=== PATIENT | male | born 1980 | race Caucasian/White ===

== ENCOUNTER 2016-07-01 08:22 | Emergency (ER) | payer MEDICAID ==
[~2016-07-01] VITALS: Ht 175.3 cm; Wt 81.6 kg
[2016-07-01 08:26] VITALS: BP 133/82; PULSE 90; RESP 18; TEMP 98.7; O2SAT 97
--- NOTE | 2016-07-01 08:26 | NUR ---
Patient brought in self with complaint of cough since last night. Patient presents as awake,alert, oriented x 4, verbalizes complaint of cough.Patient breath sounds even and unlabored, clear lung sounds heard.No other complaints/injury per patient, none noted.
--- NOTE | 2016-07-01 08:26 | NUR ---
Pt placed to ER bed 08. Pt here for c/o headache with cough, cold, head congestion x 1 day. Respirations even and non-labored, BBS clear. Pt homeless.
--- NOTE | 2016-07-01 08:27 | NUR ---
DR BENJAMIN AT BEDSIDE FOR EVALUATION
[2016-07-01] MEDS ORDERED: IBUPROFEN 800 MG TABLET PO ONE (08:45)
[2016-07-01 09:50] VITALS: BP 122/88; PULSE 99; RESP 18; TEMP 98.7; O2SAT 100
--- NOTE | 2016-07-01 09:50 | NUR ---
Patient given written and verbal discharge instructions and verbalizes understanding. ER MD discussed with patient the results and treatment provided. Patient in stable condition. ID arm band removed. Rx of Mucinex and Iburofen given. Patient educated on pain management and to follow up with PMD. Pain Scale 0/10. Opportunity for questions provided and answered.
== END 2016-07-01 09:50 | disposition home or self-care (01) ==
LOC: SED 08:22
DX: J06.9 Acute upper respiratory infection, unspecified (principal); J02.9 Acute pharyngitis, unspecified; F17.200 Nicotine dependence, unspecified, uncomplicated
CPT/HCPCS: 36415; 86403; 87081; 99284

== ENCOUNTER 2019-04-14 07:26 | Emergency (ER) | payer MEDICAID ==
[~2019-04-14] VITALS: Ht 172.7 cm; Wt 81.6 kg
[2019-04-14 07:26] VITALS: BP_SYST 125
--- NOTE | 2019-04-14 07:26 | NUR ---
BROUGHT IN BY [employer] [employer], PLACED IN BED #8 AND TRIAGED. REPORT GIVEN TO TAE
--- NOTE | 2019-04-14 07:28 | NUR ---
Pt brought by police officers in custody, pt c/o anxiety, states he was using meth few days ago , skin pink and warm, cap refill <3, respirations even and unlabored, follows commands.
--- NOTE | 2019-04-14 07:41 | NUR ---
Dr Miramontes at bedside examining patient
[2019-04-14] MEDS ORDERED: LORazepam 1 MG TABLET PO ONE (07:45)
[2019-04-14 08:05] LABS: BASOPHILS # (AUTO) 0.1 K/uL (0.0-0.2); EOSINOPHILS # (AUTO) 0.3 K/uL (0.0-0.4); HEMATOCRIT 45.4 % (36-54); HEMOGLOBIN 15.1 g/dL (14.0-18.0); LYMPHOCYTES # (AUTO) 1.5 K/uL (1.0-5.5); LYMPHOCYTES % (AUTO) 27.2 % (20.5-51.5); MEAN CORPUSCULAR HEMOGLOBIN 30 pg (27-31); MEAN CORPUSCULAR HGB CONC 33 % (32-36); MEAN CORPUSCULAR VOLUME 91 fL (79.0-98.0); MONOCYTES # (AUTO) 0.4 K/uL (0.0-1.0); MONOCYTES % (AUTO) 7.1 % (1.7-9.3); NEUTROPHILS # (AUTO) 3.1 K/uL (1.8-7.7); NEUTROPHILS % (AUTO) 58.7 % (40.0-70.0); PLATELET COUNT (AUTO) 245 K/uL (130-430); RED BLOOD CELL COUNT(AUTO) 4.96 MIL/uL (4.2-6.2); RED CELL DISTRIBUTION WIDTH 13.4 % (9.0-15.0); WHITE BLOOD COUNT (AUTO) 5.3 K/uL (4.8-10.8)
[2019-04-14 08:16] LABS: ANION GAP 9 (5-15); CALCIUM 9.2 mg/dL (8.4-11.0); CHLORIDE 103 mmol/L (98-107); CREATININE 0.94 mg/dL (0.55-1.30); GLUCOSE 89 mg/dL (70-99); SODIUM SERUM 138 mmol/L (136-145); UREA NITROGEN, BLOOD 15 mg/dL (8-21)
[2019-04-14 08:20] LABS: GFR AFRICAN AMERICAN 117 mL/min (>90)
[2019-04-14 08:21] LABS: INR 1.1 (0.80-1.20); PROTHROMBIN TIME 10.8 SECS (9.5-12.5)
[2019-04-14 08:22] LABS: ALANINE AMINOTRANSFERASE 29 U/L (12-78); ALBUMIN 3.5 g/dL (3.4-4.8); AMYLASE 55 U/L (0-100); ASPARTATE AMINOTRANSFERASE 23 U/L (10-37); LIPASE 159 U/L (73-393); TOTAL BILIRUBIN 0.5 mg/dL (0.0-1.0)
[2019-04-14 08:26] LABS: ALCOHOL, BLOOD < 3 mg/dL (<10)
--- NOTE | 2019-04-14 08:27 | NUR ---
Pt resting at this time, police aide at bedside.
[2019-04-14 08:53] LABS: ACETONE, SERUM NEGATIVE (NEGATIVE)
[2019-04-14 09:16] VITALS: BP_SYST 124
--- NOTE | 2019-04-14 09:20 | NUR ---
Patient given written and verbal discharge instructions and verbalizes understanding. ER MD discussed with patient the results and treatment provided. Patient in stable condition. ID arm band removed. Rx of Lorazepam given. Patient educated on pain management and to follow up with PMD. Pain Scale 0/10. Opportunity for questions provided and answered. Medication side effect fact sheet provided.
== END 2019-04-14 09:20 ==
LOC: SED 07:26
DX: F41.9 Anxiety disorder, unspecified (principal); R07.89 Other chest pain
CPT/HCPCS: 36415; 80053; 82009; 82150; 83605; 83690; 84484; 85025; 85610; 85730; 93005; 99284; G0482

== ENCOUNTER 2020-09-25 18:43 | Emergency (ER) | payer MEDICAID ==
[~2020-09-25] VITALS: Ht 172.7 cm; Wt 81.6 kg
--- NOTE | 2020-09-25 18:45 | NUR ---
Patient to ER bed H1 to gown for evaluation. Side rails up.
--- NOTE | 2020-09-25 18:50 | NUR ---
Pt brought by police officers , A&Ox4,pt presents to ER with dogbite on L ring finger, afebrile, VSS, will cont to monitor.
[2020-09-25 18:51] VITALS: BP_SYST 136
[2020-09-25] MEDS ORDERED: AMOX-426 PO (18:52)
--- NOTE | 2020-09-25 19:00 | NUR ---
Dr Hampton evaluating patient at bedside
[2020-09-25 19:04] VITALS: BP_SYST 136
--- NOTE | 2020-09-25 19:09 | NUR ---
Patient and PD given written and verbal discharge instructions and verbalizes understanding. ER MD discussed with patient the results and treatment provided. Patient in stable condition. ID arm band removed. Rx of Amoxicillin given. Patient educated on pain management and to follow up with PMD. Pain Scale 2/10 tolerable for patient . Opportunity for questions provided and answered. Medication side effect fact sheet provided.
== END 2020-09-25 19:04 ==
LOC: SED 18:43
DX: S61.233A Puncture wound without foreign body of left middle finger without damage to nail, initial encounter (principal); W54.0XXA Bitten by dog, initial encounter; Y93.89 Activity, other specified; Y92.89 Other specified places as the place of occurrence of the external cause; Y99.8 Other external cause status
CPT/HCPCS: 99283

== ENCOUNTER 2020-11-14 19:10 | Emergency (ER) | payer MEDICAID ==
[~2020-11-14] VITALS: Ht 172.7 cm; Wt 81.6 kg
[2020-11-14 19:10] VITALS: BP_SYST 144
[~2020-11-14 19:10] MED LIST: AMOX-426 PO
--- NOTE | 2020-11-14 19:10 | NUR ---
Patient to ER bed 06 to gown for evaluation. Side rails up. Report given to LORENA BELL
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
--- NOTE | 2020-11-14 19:22 | NUR ---
ER at bedside examining patient.
--- NOTE | 2020-11-14 19:30 | NUR ---
Patient transported to radiology via ambulatory, accompanied by tech.
--- NOTE | 2020-11-14 19:54 | NUR ---
Pt back from CT.
[2020-11-14] MEDS ORDERED: NAPR-690 PO (20:28)
[2020-11-14 20:35] VITALS: BP_SYST 144
--- NOTE | 2020-11-14 20:35 | NUR ---
Patient given written and verbal discharge instructions and verbalizes understanding. ER MD discussed with patient the results and treatment provided. Patient in stable condition. ID arm band removed. Rx of naproxen given. Patient educated on pain management and to follow up with PMD. Pain Scale 0/10. Opportunity for questions provided and answered. Medication side effect fact sheet provided.
== END 2020-11-14 20:35 | disposition home or self-care (01) ==
LOC: SED 19:10
DX: S02.609A Fracture of mandible, unspecified, initial encounter for closed fracture (principal); Z79.899 Other long term (current) drug therapy; Y04.0XXA Assault by unarmed brawl or fight, initial encounter; Y93.89 Activity, other specified; Y92.89 Other specified places as the place of occurrence of the external cause; Y99.8 Other external cause status
CPT/HCPCS: 70486-TC; 76376; 99284

== ENCOUNTER 2021-01-26 21:54 | Emergency (ER) | payer MEDICAID ==
[~2021-01-26] VITALS: Ht 175.3 cm; Wt 81.6 kg
[~2021-01-26 21:54] MED LIST changes: +NAPR-690 PO
[2021-01-26 22:09] VITALS: BP_SYST 131
--- NOTE | 2021-01-26 22:09 | NUR ---
Patient triaged and placed in ER AMB [address]. VSS and patient appears in no acute distress at this time. Accompanied by EMT, awaiting available bed, and MD notified of need for MSE.
[2021-01-27 00:05] LABS: BASOPHILS # (AUTO) 0.1 K/uL (0.0-0.2); BASOPHILS % (AUTO) 0.5 % (0.0-2.0); EOSINOPHILS # (AUTO) 0.1 K/uL (0.0-0.4); EOSINOPHILS % (AUTO) 0.5 % (0.0-4.0); HEMATOCRIT 43.1 % (36-54); HEMOGLOBIN 14.3 g/dL (14.0-18.0); LYMPHOCYTES # (AUTO) 1.5 K/uL (1.0-5.5); LYMPHOCYTES % (AUTO) 11.7 % (20.5-51.5); MEAN CORPUSCULAR HEMOGLOBIN 30 pg (27-31); MEAN CORPUSCULAR HGB CONC 33 % (32-36); MEAN CORPUSCULAR VOLUME 91 fL (79.0-98.0); MONOCYTES # (AUTO) 0.8 K/uL (0.0-1.0); MONOCYTES % (AUTO) 5.8 % (1.7-9.3); NEUTROPHILS # (AUTO) 10.7 K/uL (1.8-7.7); NEUTROPHILS % (AUTO) 81.5 % (40.0-70.0); PLATELET COUNT (AUTO) 266 K/uL (130-430); RED BLOOD CELL COUNT(AUTO) 4.75 MIL/uL (4.2-6.2); RED CELL DISTRIBUTION WIDTH 12.9 % (9.0-15.0); WHITE BLOOD COUNT (AUTO) 13.1 K/uL (4.8-10.8)
[2021-01-27 00:32] LABS: CALCIUM 9.1 mg/dL (8.4-11.0); CREATININE 1.02 mg/dL (0.55-1.30); POTASSIUM 4.3 mmol/L (3.5-5.1)
[2021-01-27 00:46] LABS: ALBUMIN 4.3 g/dL (3.4-4.8); TOTAL BILIRUBIN 0.3 mg/dL (0.0-1.0)
--- NOTE | 2021-01-27 01:00 | NUR ---
DANIEL Hall at bedside examining patient.
--- NOTE | 2021-01-27 01:05 | NUR ---
PAtient presents to the ED complaining of dizziness s/p drinking alocohol and smoking marijuana.
[2021-01-27] MEDS ORDERED: MECLIZINE HCL 25 MG TABLET (ANITVERT) PO ONE (01:45)
[2021-01-27] MEDS ORDERED: ONDANSETRON HCL 4 MG/2 ML VIAL IVP ONE (01:45)
[2021-01-27] MEDS ORDERED: ONDANSETRON 4 MG ODT TAB ONE (01:50)
--- NOTE | 2021-01-27 01:54 | NUR ---
medicated per md orders.
[2021-01-27] MEDS ORDERED: MECL-160 PO (01:56)
[2021-01-27] MEDS ORDERED: ONDA-8 TL (01:59)
[2021-01-27] MEDS ORDERED: ONDANSETRON 4 MG ODT TAB PO ONE ×2 (02:00)
[2021-01-27 02:08] VITALS: BP_SYST 126
--- NOTE | 2021-01-27 02:08 | NUR ---
Patient given written and verbal discharge instructions and verbalizes understanding. Given copies of tests performed during visit. Patient is awake, alert and oriented. Ambulatory with steady gait. Refuses offer of group home placement. Given list of available shelters in surrounding areas. Patient given written and verbal discharge instructions and verbalizes understanding. ER MD discussed with patient the results and treatment provided. Patient in stable condition. ID arm band removed. Rx of antivert and zofran given. Patient educated on pain management and to follow up with PMD. Pain Scale 0/10 Opportunity for questions provided and answered. Medication side effect fact sheet provided.
== END 2021-01-27 02:08 | disposition home or self-care (01) ==
LOC: SED 21:54
DX: H81.399 Other peripheral vertigo, unspecified ear (principal); F10.20 Alcohol dependence, uncomplicated; F12.90 Cannabis use, unspecified, uncomplicated; F17.210 Nicotine dependence, cigarettes, uncomplicated; Z79.899 Other long term (current) drug therapy; Y90.9 Presence of alcohol in blood, level not specified
CPT/HCPCS: 36415; 80053; 82962; 85025; 99283; J8597; Q0162